=== PATIENT | male | born 1995 | race Caucasian/White ===

== ENCOUNTER 2024-02-03 11:04 | Emergency (ER) | payer BC ==
[~2024-02-03] VITALS: Ht 180.3 cm; Wt 80.3 kg
[2024-02-03 12:10] VITALS: BP 133/86; TEMP 98; O2SAT 100
== END 2024-02-03 12:11 | disposition home or self-care (01) ==
LOC: ER 11:05
DX: S52.612A Displaced fracture of left ulna styloid process, initial encounter for closed fracture (principal); V19.88XA Pedal cyclist (driver) (passenger) injured in other specified transport accidents, initial encounter; Y93.55 Activity, bike riding; Y92.89 Other specified places as the place of occurrence of the external cause; Y99.8 Other external cause status
CPT/HCPCS: 73110; A4606; A4663